=== PATIENT | female | born 1930 | race Caucasian/White ===

== ENCOUNTER 2017-12-16 05:16 | Observation (INO) | payer OTHER, MEDICARE ==
[2017-12-16] MEDS ORDERED: NITROGLYCERIN 0.4 MG/TAB SL ONE (05:46)
[2017-12-16] MEDS ORDERED: ASPIRIN 81 MG CHEWABLE TABLET ONE (05:46)
[2017-12-16 06:11] LABS: Bicarbonate 27 mEq/L (21-31); Glucose Level 90 mg/dL (65-120); Potassium 3.8 mEq/L (3.6-5.0); Sodium Level 140 mEq/L (135-145)
[2017-12-16 06:17] LABS: ALT/SGPT 14 IU/L (10-60); AST/SGOT 21 IU/L (10-42); Albumin 3.9 g/dL (3.2-5.5); Alkaline Phosphatase 61 IU/L (42-121); BUN Blood Urea Nitrogen 13 mg/dL (6-20); Bilirubin Direct 0.2 mg/dL (0-0.2); Bilirubin Total 0.9 mg/dL (0.3-1.2); Creatine Phosphokinase 24 IU/L (22-269); Magnesium 1.7 mg/dL (1.8-2.5); Protein, Total 7.5 g/dL (6.0-8.3)
[2017-12-16 06:20] LABS: CKMB Creatine Kinase MB 2.5 ng/ml (0.3-4.0)
[2017-12-16 06:21] LABS: Absolute Lymphocytes (CBC) 2.5 K/uL (0.7-4.9); Absolute Monocytes 1.2 K/uL (0.1-1.3); Absolute Neutrophil 6.5 K/uL (1.8-8.0); Basophils % 0.8 % (0-1.3); Eosinophils % 1.8 % (0-4.4); Hematocrit 41.5 % (36.0-45.0); Lymphocytes % 23.8 % (15.3-44.8); MCH 27.3 pg (27.0-35.0); MCV 84.5 fL (80-100); MPV 8.7 fL (7.6-11.3); Monocytes % 11.6 % (3.3-12.3); RBC Red Blood Cell Count 4.91 M/uL (3.86-4.86)
[2017-12-16] MEDS ORDERED: MAGNESIUM SULFATE 1 gm IVPB 1 GM/100 ML BAG IV ONE (06:30)
[2017-12-16 06:33] LABS: Protime INR 0.99
--- NOTE | 2017-12-16 06:46 | ER ---
Nurse's Notes [facility] Name: Nena Burton Age: 87 yrs Sex: Female : 1930 Arrival Date: 12/16/2017 Time: 05:17 Bed 7 Private MD: Diagnosis: Chest pain Presentation: 12/16 05:28 Presenting complaint: Patient states: LEFT CHEST PAIN RADIATING TO LEFT ARM. Transition bp of care: patient was not received from another setting of care. No acute neurological deficit is noted. Onset of symptoms was December 16, 2017 at 01:30. Risk Assessment: Do you want to hurt yourself or someone else? Patient reports no desire to harm self or others. Initial Sepsis Screen: Does the patient meet any 2 criteria? No. Patient's initial sepsis screen is negative. Does the patient have a suspected source of infection? No. Patient's initial sepsis screen is negative. Care prior to arrival: None. 05:28 Method Of Arrival: Wheelchair bp 05:28 Acuity: NITHIN 2 bp Triage Assessment: 05:29 The onset of the patients symptoms was December 16, 2017 at 01:30. General: Appears in no bp apparent distress. comfortable, obese, Behavior is cooperative, appropriate for age, anxious. Pain: Complains of pain in left clavicle and anterior aspect of left upper chest Pain radiates to left arm. EENT: No signs and/or symptoms were reported regarding the EENT system. Neuro: Reports numbness in left clavicle and anterior aspect of left upper chest. Cardiovascular: Rhythm is sinus rhythm. Respiratory: Airway is patent Respiratory effort is even, unlabored, Respiratory pattern is regular, symmetrical. GI: No signs and/or symptoms were reported involving the gastrointestinal system. : No signs and/or symptoms were reported regarding the genitourinary system. Derm: No deficits noted. Musculoskeletal: Circulation, motion, and sensation intact. Range of motion: intact in all extremities. Historical: - Allergies: 05:38 Sulfa (Sulfonamide Antibiotics); bp 05:38 PENICILLINS; bp - Home Meds: 05:38 escitalopram oxalate 10 mg oral tab 1 tab once daily [Active]; levothyroxine 100 mcg bp tab 1 tab once daily [Active]; ramipril 5 mg Oral cap 1 cap once daily [Active]; gabapentin 300 mg oral cap 1 cap 3 times per day [Active]; venlafaxine 75 mg oral cp24 1 cap once daily [Active]; pravastatin 40 mg oral tab 1 tab once daily [Active]; prednisone 5 mg Oral tab once daily [Active]; tramadol 50 mg Oral tab 1 tab daily [Active]; - PMHx: 05:38 High Cholesterol; Depression; NEUROPATHY; Hypertension; Hypothyroidism; bp - Immunization history:: Adult Immunizations up to date. - Social history:: Smoking status: Patient/guardian denies using tobacco. - Ebola Screening: : Patient negative for fever greater than or equal to 101.5 degrees Fahrenheit, and additional compatible Ebola Virus Disease symptoms Patient denies exposure to infectious person Patient denies travel to an Ebola-affected area in the 21 days before illness onset No symptoms or risks identified at this time. Screenin:40 Abuse screen: Denies threats or abuse. Denies injuries from another. Nutritional bp screening: No deficits noted. Tuberculosis screening: No symptoms or risk factors identified. Fall Risk No fall in past 12 months (0 pts). No secondary diagnosis (0 pts). No IV (0 pts). Ambulatory Aid- Crutches/Cane/Walker (15 pts). Gait- Weak (10 pts.). Mental Status- Oriented to own ability (0 pts). Total Baltazar Fall Scale indicates Low Risk Score (25-44 pts). Fall prevention measures have been instituted. Side Rails Up X 2 Placed close to Nursing Station Frequent Obs/Assesments occuring Family Present and informed to notify staff if they need to leave bedside As available Patient and Family Educated on Fall Prevention Program and strategies. Assessment: 05:39 General: SEE TRIAGE NOTE. 87YO WF P/W LEFT CP RADIATING TO LEFT ARM SINCE 0130. bp 06:46 Reassessment: ADMIT IN PROCESS FOR HTN AND CP. bp Vital Signs: 05:32 BP 217 / 107; Pulse 66; Resp 16; Temp 98.1; Pulse Ox 98% ; Weight 105.69 kg; Height 5 bp ft. 6 in. (167.64 cm); 06:07 BP 178 / 53; Pulse 64; Resp 18; Pulse Ox 98% ; bp 06:48 BP 158 / 62; Pulse 60; Resp 18; Pulse Ox 100% ; bp 07:46 BP 136 / 69; Pulse 72; Resp 18; Temp 98.1(TE); Pulse Ox 98% on R/A; hj 05:32 Body Mass Index 37.61 (105.69 kg, 167.64 cm) bp ED Course: 05:17 Patient arrived in ED. am2 05:27 Clarence Devries, RN is Primary Nurse. bp 05:29 Triage completed. bp 05:32 Arm band placed on. bp 05:35 Nam Preston MD is Attending Physician. pkl 05:40 Patient has correct armband on for positive identification. Placed in gown. Bed in low bp position. Call light in reach. Side rails up X2. Adult w/ patient. 05:46 Inserted saline lock: 20 gauge in left forearm, using aseptic technique. Blood bp collected. 06:27 CT Head Brain wo Cont In Process Unspecified. EDMS 06:45 César Robins MD is Hospitalizing Provider. pkl 06:53 XRAY Chest (1 view) In Process Unspecified. EDMS 07:43 No provider procedures requiring assistance completed. Patient admitted, IV remains in hj place. intact. Administered Medications: 05:48 Drug: Nitroglycerin 0.4 mg Route: Sublingual; bp 06:13 Follow up: Response: Blood pressure is lowered bp 05:49 Drug: Aspirin 162 mg Route: PO; bp 06:13 Follow up: Response: No adverse reaction bp 06:38 Drug: Magnesium Sulfate 1 grams Route: IVPB; Infused Over: 1 hrs; Site: left forearm; mg2 Outcome: 06:46 Decision to Hospitalize by Provider. pkl 07:44 Admitted to Tele accompanied by tech, family with patient, via stretcher, room 405, with chart, Report called to MACY Bashir 07:44 Condition: stable 07:44 Instructed on the need for admit, Demonstrated understanding of instructions. 07:51 Patient left the ED. Signatures: Dispatcher [employer] EDMS Nam Preston MD MD pkl Oneil Man RN RN hj Char Uriostegui am2 Clarence Devries, RN RN bp Francesco Pena RN RN mg2 Corrections: (The following items were deleted from the chart) 05:39 05:31 90.72 kg; bp bp 05:39 05:32 BP 217 / 107; Pulse 66bpm; Resp 16bpm; bp bp
--- NOTE | 2017-12-16 06:46 | EDPHYS ---
Physician Documentation [facility] Name: Nena Burton Age: 87 yrs Sex: Female : 1930 Arrival Date: 12/16/2017 Time: 05:17 Bed 7 Private MD: ED Physician Nam Preston HPI: 12/16 05:38 This 87 yrs old Female presents to ER via Wheelchair with complaints of S/S pkl of Possible Stroke. 05:38 The patient or guardian reports chest pain that is located primarily in the substernal pkl area. Onset: just prior to arrival, 4 hour(s) ago. The pain radiates to the left arm. The chest pain is described as aching. Historical: - Allergies: 05:38 Sulfa (Sulfonamide Antibiotics); bp 05:38 PENICILLINS; bp - Home Meds: 05:38 escitalopram oxalate 10 mg oral tab 1 tab once daily [Active]; levothyroxine 100 mcg bp tab 1 tab once daily [Active]; ramipril 5 mg Oral cap 1 cap once daily [Active]; gabapentin 300 mg oral cap 1 cap 3 times per day [Active]; venlafaxine 75 mg oral cp24 1 cap once daily [Active]; pravastatin 40 mg oral tab 1 tab once daily [Active]; prednisone 5 mg Oral tab once daily [Active]; tramadol 50 mg Oral tab 1 tab daily [Active]; - PMHx: 05:38 High Cholesterol; Depression; NEUROPATHY; Hypertension; Hypothyroidism; bp - Immunization history:: Adult Immunizations up to date. - Social history:: Smoking status: Patient/guardian denies using tobacco. - Ebola Screening: : Patient negative for fever greater than or equal to 101.5 degrees Fahrenheit, and additional compatible Ebola Virus Disease symptoms Patient denies exposure to infectious person Patient denies travel to an Ebola-affected area in the 21 days before illness onset No symptoms or risks identified at this time. ROS: 05:38 Eyes: Negative for injury, pain, redness, and discharge, ENT: Negative for injury, pkl pain, and discharge, Neck: Negative for injury, pain, and swelling. 05:38 Cardiovascular: Positive for chest pain. 05:38 Respiratory: Negative for cough, shortness of breath. 05:38 Abdomen/GI: Negative for abdominal pain, nausea, vomiting, and diarrhea. 05:38 Back: Negative for acute changes. 05:38 : Negative for urinary symptoms. 05:38 MS/extremity: Negative for acute changes. 05:38 Skin: Negative for rash. 05:38 Neuro: Negative for altered mental status, numbness, speech changes, weakness. Exam: 05:38 Head/Face: Normocephalic, atraumatic. Eyes: Pupils equal round and reactive to light, pkl extra-ocular motions intact. Lids and lashes normal. Conjunctiva and sclera are non-icteric and not injected. Cornea within normal limits. Periorbital areas with no swelling, redness, or edema. ENT: Nares patent. No nasal discharge, no septal abnormalities noted. Tympanic membranes are normal and external auditory canals are clear. Oropharynx with no redness, swelling, or masses, exudates, or evidence of obstruction, uvula midline. Mucous membranes moist. Neck: Trachea midline, no thyromegaly or masses palpated, and no cervical lymphadenopathy. Supple, full range of motion without nuchal rigidity, or vertebral point tenderness. No Meningismus. Chest/axilla: Normal chest wall appearance and motion. Nontender with no deformity. No lesions are appreciated. 05:38 Cardiovascular: Rate: normal, Rhythm: irregularly irregular. 05:38 ECG was reviewed by the Attending Physician. 05:38 Respiratory: the patient does not display signs of respiratory distress, Respirations: normal, Breath sounds: are clear throughout. 05:38 Abdomen/GI: Bowel sounds: normal, Palpation: abdomen is soft and non-tender, in all quadrants. 05:38 Back: Exam negative for acute changes. 05:38 : Exam negative for acute changes. 05:38 Musculoskeletal/extremity: Exam is negative for acute changes. 05:38 Skin: Exam negative for rash. 05:38 Neuro: Orientation: appropriate for stated age, Mentation: appropriate for stated age, Cranial nerves: grossly normal, Cerebellar function: normal finger to nose testing, Motor: moves all fours. Vital Signs: 05:32 BP 217 / 107; Pulse 66; Resp 16; Temp 98.1; Pulse Ox 98% ; Weight 105.69 kg; Height 5 bp ft. 6 in. (167.64 cm); 06:07 BP 178 / 53; Pulse 64; Resp 18; Pulse Ox 98% ; bp 06:48 BP 158 / 62; Pulse 60; Resp 18; Pulse Ox 100% ; bp 07:46 BP 136 / 69; Pulse 72; Resp 18; Temp 98.1(TE); Pulse Ox 98% on R/A; hj 05:32 Body Mass Index 37.61 (105.69 kg, 167.64 cm) bp MDM: 05:35 Patient medically screened. pkl 05:38 Data reviewed: vital signs, nurses notes. pkl 05:55 ED course: Patient said she is also having headache and sinus congestion and drainage. pkl 06:29 Data reviewed: lab test result(s), EKG, radiologic studies, CT scan, plain films. pkl 12/16 05:36 Order name: Basic Metabolic Panel; Complete Time: 06:21 pkl 12/16 05:36 Order name: BNP pkl 12/16 05:36 Order name: CBC with Diff pkl 12/16 05:36 Order name: Ckmb; Complete Time: 06:21 pkl 12/16 05:36 Order name: CPK; Complete Time: 06:21 pkl 12/16 05:36 Order name: LFT's; Complete Time: 06:21 pkl 12/16 05:36 Order name: Magnesium; Complete Time: 06:21 pkl 12/16 05:36 Order name: PT-INR; Complete Time: 06:46 pkl 12/16 05:36 Order name: Ptt, Activated; Complete Time: 06:46 pkl 12/16 05:36 Order name: Troponin (emerg Dept Use Only); Complete Time: 06:21 pkl 12/16 06:50 Order name: Basic Metabolic Panel EDMS 12/16 06:50 Order name: Basic Metabolic Panel EDMS 12/16 06:50 Order name: CBC with Automated Diff EDMS 12/16 06:50 Order name: CBC with Automated Diff EDMS 12/16 05:36 Order name: XRAY Chest (1 view) pkl 12/16 05:36 Order name: EKG; Complete Time: 05:37 pkl 12/16 05:36 Order name: Cardiac monitoring; Complete Time: 05:41 pkl 12/16 05:58 Order name: CT Head Brain wo Cont pkl 12/16 06:50 Order name: Regular EDMS 12/16 06:50 Order name: EKG Electrocardiogram EDMS 12/16 06:50 Order name: EKG Electrocardiogram EDTN 12/16 06:50 Order name: EKG Electrocardiogram EDTN 12/16 06:50 Order name: EKG Electrocardiogram EDTN 12/16 06:50 Order name: Troponin I EDTN 12/16 06:50 Order name: Troponin I EDTN 12/16 06:50 Order name: Troponin I [facility] 12/16 07:17 Order name: Manual Differential EDTN 12/16 05:36 Order name: EKG - Nurse/Tech; Complete Time: 05:41 pkl 12/16 05:36 Order name: IV Saline Lock; Complete Time: 05:45 pkl 12/16 05:36 Order name: Labs collected and sent; Complete Time: 05:45 pkl 12/16 05:36 Order name: O2 Per Protocol; Complete Time: 05:41 pkl 12/16 05:36 Order name: O2 Sat Monitoring; Complete Time: 05:41 pkl Administered Medications: 05:48 Drug: Nitroglycerin 0.4 mg Route: Sublingual; bp 06:13 Follow up: Response: Blood pressure is lowered bp 05:49 Drug: Aspirin 162 mg Route: PO; bp 06:13 Follow up: Response: No adverse reaction bp 06:38 Drug: Magnesium Sulfate 1 grams Route: IVPB; Infused Over: 1 hrs; Site: left forearm; mg2 Disposition: 12/16/17 06:46 Hospitalization ordered by César Robins for Observation. Preliminary diagnosis is Chest pain. - Bed requested for Telemetry/MedSurg (observation). - Status is Observation. hj - Condition is Stable. - Problem is new. - Symptoms have improved. UTI on Admission? No Signatures: Dispatcher [facility] Jackie Braga RN RN Nam Preston MD MD pkl Oneil Man RN RN hj Peltier, Brian, RN RN bp Botello, Elizabeth eb Gardose, Michele, RN RN mg2 Corrections: (The following items were deleted from the chart) 06:49 06:46 Hospitalization Ordered by César Robins MD for Observation. Preliminary diagnosis eb is Chest pain. Bed requested for Telemetry/MedSurg (observation). Status is Observation. Condition is Stable. Problem is new. Symptoms have improved. UTI on Admission? No. pkl 06:55 06:49 12/16/2017 06:46 Hospitalization Ordered by César Robins MD for Observation. mw Preliminary diagnosis is Chest pain. Bed requested for Telemetry/MedSurg (observation). Status is Observation. Condition is Stable. Problem is new. Symptoms have improved. UTI on Admission? No. eb 07:51 06:55 12/16/2017 06:46 Hospitalization Ordered by César Robins MD for Observation. hj Preliminary diagnosis is Chest pain. Bed requested for Telemetry/MedSurg (observation). Status is Observation. Condition is Stable. Problem is new. Symptoms have improved. UTI on Admission? No. mw
[2017-12-16 07:17] LABS: Anisocytosis 3+; Blood Morphology Comment NOTED (NOT SEEN); Macrocytosis 1+; Platelet Estimate ADEQ
--- NOTE | 2017-12-16 08:10 | RAD REPORT ---
EXAM DESCRIPTION: CT - Head Brain Wo Cont - 12/16/2017 6:27 am CLINICAL HISTORY: Headache COMPARISON: None. TECHNIQUE: All CT scans are performed using dose optimization technique as appropriate and may inclu de automated exposure control or mA/KV adjustment according to patient size. FINDINGS: No intracranial hemorrhage, hydrocephalus or extra-axial fluid collection.Mild generalized brain atrophy is present with mild periventricular and deep white matter chronic microvascular ische zaira changes.No areas of brain edema or evidence of midline shift. The paranasal sinuses and mastoids are clear. The calvarium is intact. IMPRESSION: No acute intracranial abnormality.
--- NOTE | 2017-12-16 08:24 | RAD REPORT ---
EXAM DESCRIPTION: RAD - Chest Single View - 12/16/2017 6:52 am CLINICAL HISTORY: Chest pain. COMPARISON: 09/29/2017, 01/11/2016 FINDINGS: Portable technique limits examination quality. Mild interstitial prominence is noted likely indicating mild interstitial pulmonary edema. The heart is moderately enlarged in size. No displaced fractures. IMPRESSION: Mild CHF/ volume overload pattern.
[2017-12-16] MEDS: ASPIRIN EC 81 MG TAB PO SCH (09:00)
--- NOTE | 2017-12-16 09:11 | EKG ---
Test Date: 2017-12-16 Test Time: 05:27:37 Route Aide: ABE MEASUREMENT RESULTS: Intervals: Rate: 65 MD: QRSD: 80 QT: 390 QTc: 405 Hamel: P: MD: QRS: 9 T: 123 INTERPRETIVE STATEMENTS: Atrial fibrillation with premature ventricular or aberrantly conducted complexes Minimal voltage criteria for LVH, may be normal variant Nonspecific ST and T wave abnormality Abnormal ECG No previous ECG available for comparison Electronically Signed On 12-16-17 09:10:49 CDT by Corbin Marx
[2017-12-16] MEDS: ACETAMINOPHEN 500 MG TAB PO PRN ×2 (11:26→17:01)
[2017-12-16 13:09] VITALS: BMI 37.5
[2017-12-16 13:43] LABS: Urine Appearance CLOUDY; Urine Bilirubin NEGATIVE (NEG); Urine Blood 1+ (NEG); Urine Color YELLOW; Urine Glucose NEGATIVE (NEG); Urine Protein TRACE (NEG); Urine Specific Gravity 1.015 (1.005-1.030)
--- NOTE | 2017-12-16 13:48 | RAD REPORT ---
EXAM DESCRIPTION: CT - Chest For Pe Angio - 12/16/2017 1:15 pm CLINICAL HISTORY: Chest pain, shortness of breath, hypoxia COMPARISON: Portable chest December 16 TECHNIQUE: Dynamically enhanced 3 mm thick images of the chest were obtained during administration o f approximately 150mL Isovue 370 IV contrast. Coronal and oblique reconstruction images were generate d and reviewed. Exam utilizes a protocol to evaluate the pulmonary arterial tree. All CT scans are performed using dose optimization technique as appropriate and may include automated exposure control or mA/KV adjustment according to patient size. FINDINGS: No pulmonary emboli are identified. The aorta as imaged shows no acute or suspicious finding. No pericardial thickening or effusion. Card iac silhouette is enlarged predominantly left atrial enlargement. No focal consolidation or mass. Interstitial markings are prominent. Early interstitial edema or infi ltrate could be masked by the chronic interstitial pattern. No pleural effusion or pleural thickening . No mediastinal or hilar suspicious masses. No chest wall masses or abnormal axillary lymphadenopathy. IMPRESSION: No pulmonary emboli identified. Cardiomegaly and mild prominence of the interstitial markings. Early failure or volume overload suspe cted.
[2017-12-16 14:18] LABS: Calcium Oxalate Crystals- Ur FEW (NONE SEEN); Urine Amorphous Sediment 2+ /HPF (NONE SEEN); Urine Bacteria <20 /HPF (<20); Urine Culture Reflex Order REFLEXED; Urine Yeast FEW (NONE SEEN)
[2017-12-16] MEDS: LOSARTAN/HCTZ 50-12.5 PO SCH (14:26)
[2017-12-16] MEDS ORDERED: RIVAROXABAN 20 MG TABLET PO SCH (17:00)
[2017-12-16] MEDS ORDERED: RIVAROXABAN 10 MG TABLET PO SCH (17:00)
--- NOTE | 2017-12-16 19:15 | CON ---
Chief Complaint: Shoulder Pain. History Of Present Illness: Ms. Burton got up in the middle of the night. She does not think she f ell, but she noticed her left shoulder hurts. It hurts when she raises her shoulder, hurts when she touches it. Her chest has not hurt. She was placed in the hospital and [place] was ruled out by EKGs and enzymes. She is a chronic AFib. She had a stroke 20 years ago, was on Coumadin. Her present medic al record says, she takes 10 mg of Xarelto, but that would be an unfortunate under dosing for someone in chronic AFib, who has had a stroke. Her creatinine is normal. GFR is normal. Her dose is 20 mg . I feel for sure that is actually what she takes and are record is actually mistaken and saying she takes 10. So, we will give her 10 mg. The pain is not central chest. There is no dyspnea or sweati ng. There is point tenderness when you touch the shoulder. There is tenderness when she tries to ra ise it. I think she has a small rotator cuff tear, may have happened while she was sleeping. It is something that can happen when we sleep on arms awkwardly, especially in an 87-year-old. The patient has never had vascular disease. Her stroke was caused by AFib. Social History: She uses no tobacco. No illegal drugs. Physical Examination: General: She is 5 feet 6 inches, 233 pounds, extremely hard of hearing. HEENT: Unremarkable. Lungs: Clear. Heart: Irregularly irregular, rate 78, blood pressure 150/86, O2 sat 95%. Extremities: palpable distal pulses. Trace edema. Diagnostic Data: Electrocardiogram reveals atrial fibrillation, occasional PVCs. Ventricular rate 6 5, LVH with a nonspecific repolarization abnormality. I really do not think, we need to do an ischemia workup on Ms. Burton. I think she should be chroni giovanni anticoagulated and I do not see any reason that we need to keep her overnight to do any testing . If there are any doubts about whether this could be an ischemia, we could schedule an outpatient s tress test. I just do not think that is necessary and I think she could be discharged at any point. LEONILA/BIJAL Voice ID: [id number] Report ID: [id number]
[2017-12-16] MEDS ORDERED: TRAMADOL HCL 50 MG TAB PO PRN (20:58)
[2017-12-16] MEDS ORDERED: ATORVASTATIN 10 MG TAB PO SCH (21:00)
--- NOTE | 2017-12-16 21:19 | P.HP ---
Certification for Inpatient Patient admitted to: Observation With expected LOS: <2 Midnights Practitioner: I am a practitioner with admitting privileges, knowledge of patient current condition, hospital course, and medical plan of care. Services: Services provided to patient in accordance with Admission requirements found in Title 42 Section 412.3 of the Code of Federal Regulations Patient History Date of Service: 12/16/17 Reason for admission: CHEST PAIN, JAW PAIN, SHOULDER PAIN. History of Present Illness: MRS. GARCIA IS VERY ANXIOUS LADY WHO IS NOT HANDLING HER LOSS OF FACILITIES WELL. SHE IS ALMOST TOTALLY DEAF, WORRIES ABOUT EVERYTHING. COMES WITH UNCLEAR STORY OF CHEST PAIN, JAW PAIN LAST NIGHT AND CALLS THE SON AT 3 AM. SHE HAS SHOLDER PAIN WITH SEVERE ARTHRITIS FOR A LONG TIME. SHE HAS A FIB ON [facility] XARELTO BUT HAD TO BE STOPPED HER HG DROPPED TO 8 GM ABOUT TWO MONTHS AGO. WE JUST DECIDED TO RESUME IT TWO DAYS AGO. SHE SHOULD BE ON 20 MG A DAY BUT WITH UNDIAGNOSIED BLEEDING OR BLOOD LOSS SHE IS KEPT ON LOWER DOSE. SHE IS NOT IN A GREAT SHAPE TO GO FOR COLONOSCOPY. Allergies cefamandole nafate [From Mandol] Allergy (Verified 03/31/14 18:05) Itching Penicillins Allergy (Verified 03/31/14 18:05) Anaphylaxis Sulfa (Sulfonamide Antibiotics) Allergy (Verified 03/31/14 18:05) Itching maldol Allergy (Uncoded 06/06/15 18:06) Unknown SULFUR, ELEMENTAL Allergy (Uncoded 06/06/15 18:06) Unknown Home Medications: Antiox#10/Om3/Dha/Epa/Lut/Zeax [I-Caps with Lutein-Mckinney 3 Sfg] 1 each PO DAILY 03/31/14 Cholecalciferol (Vitamin D3) [Vitamin D3] 2,000 unit PO DAILY 03/31/14 Escitalopram [Lexapro] 10 mg PO DAILY 03/31/14 Gabapentin 300 mg PO TID 03/31/14 Glucosamine HCl/Chondr Palencia A Na [Osteo Bi-Flex Caplet] 1 each PO BID 03/31/14 Levothyroxine [Synthroid*] 100 mcg PO DAILY 03/31/14 Pravastatin Sodium [Pravachol] 40 mg PO DAILY 03/31/14 Ramipril [Altace] 5 mg PO DAILY 09/26/14 Rivaroxaban [Xarelto*] 10 mg PO DAILY 03/31/14 Ferrous Fumarate/Folic Acid [Hematinic-Folic Acid Tablet] 1 tab PO DAILY predniSONE [Prednisone*] 5 mg PO DAILY 12/16/17 traMADol HCL [Ultram*] 50 mg PO BIDP PRN 12/16/17 - Past Medical/Surgical History Has patient received pneumonia vaccine in the past: Yes Diabetic: No -: Lymphedema -: Hypothyroidism -: Irregular Heart Rate -: Neuropathy -: Hyperlipidemia -: Hypertension -: Depression -: Right wrist fracture (cast) -: Right knee replacement 2011 -: Appendectomy -: Hysterectomy - Social History Smoking Status: Never smoker Alcohol use: No CD- Drugs: No Place of Residence: Home Review of Systems 10-point ROS is otherwise unremarkable General: Sweats (NIGHT) Cardiovascular: Chest Pain Physical Examination - Vital Signs Temperature: 97.3 F Blood Pressure: 155/80 Pulse: 55 Respirations: 18 Pulse Ox (%): 98 - Physical Exam General: Alert, Acute distress, Obese HEENT: Atraumatic, PERRLA, Mucous membr. moist/pink, EOMI, Sclerae nonicteric Neck: Supple, 2+ carotid pulse no bruit, No LAD, Without JVD or thyroid abnormality Respiratory: Clear to auscultation bilaterally, Normal air movement Cardiovascular: Regular rate/rhythm, Normal S1 S2 Gastrointestinal: Normal bowel sounds, No tenderness Musculoskeletal: No tenderness Integumentary: No rashes Neurological: Normal gait, Normal speech, Normal strength at 5/5 x4 extr, Normal tone, Normal affect, Other (ANXIETY) Lymphatics: No axilla or inguinal lymphadenopathy - Studies Laboratory Data (last 24 hrs) 12/16/17 05:45: PT 11.7, INR 0.99, APTT 26.2 12/16/17 05:45: WBC 10.5, Hgb 13.4, Hct 41.5, Plt Count 232 12/16/17 05:45: B-Natriuretic Peptide 284 H 12/16/17 05:45: Sodium 140, Potassium 3.8, BUN 13, Creatinine 0.62, Glucose 90, Magnesium 1.7 L, Total Bilirubin 0.9, AST 21, ALT 14, Alkaline Phosphatase 61 Assessment and Plan - Problems (Diagnosis) (1) Chest pain, atypical Current Visit: Yes Status: Acute Plan: SEEMS NON CARDIAC IT IS ATYPICAL. SHE HAS ARTHRITIS THAT IS SEVERE. SHE HAS HAD TA IN PAST THAT CAN GIVE RISE TO JAW PAIN. WILL CONTINUE XARELTO. GIVE NTG FOR SL USE. I WILL RAISE HER LEXAPRO SO SHE CAN BE CALMER. SHE MAY HAVE CAD BUT AGAIN WITH DECONDITIONED BODY SHE DOES NOT NEED ANY INVASIVE WORK UP. (2) A-fib Current Visit: Yes Status: Acute Plan: WILL WATCH , HG EVERY MONTH . SHE KNOWS WITH ANY DROP IN HG WE WILL HAVE TO STOP XARELTO. - Advance Directives Does patient have a Living Will: No Does patient have a Durable POA for Healthcare: No
[2017-12-17 04:23] LABS: Absolute Lymphocytes (CBC) 2.7 K/uL (0.7-4.9); Absolute Monocytes 1.2 K/uL (0.1-1.3); Absolute Neutrophil 4.8 K/uL (1.8-8.0); Basophils % 1.4 % (0-1.3); Eosinophils % 2.8 % (0-4.4); Hematocrit 41.9 % (36.0-45.0); Lymphocytes % 29.8 % (15.3-44.8); MCH 27.2 pg (27.0-35.0); MCV 83.6 fL (80-100); MPV 8.6 fL (7.6-11.3); Monocytes % 12.9 % (3.3-12.3); RBC Red Blood Cell Count 5.01 M/uL (3.86-4.86)
[2017-12-17 04:29] LABS: BUN Blood Urea Nitrogen 10 mg/dL (6-20); Bicarbonate 28 mEq/L (21-31); Glucose Level 100 mg/dL (65-120); Potassium 3.7 mEq/L (3.6-5.0); Sodium Level 141 mEq/L (135-145)
[2017-12-17] MEDS: ACETAMINOPHEN 500 MG TAB PO PRN (05:36)
[2017-12-17] MEDS ORDERED: LEVOTHYROXINE SOD 0.1 MG TAB PO SCH (06:30)
[2017-12-17 08:17] VITALS: BP 190/79; TEMP 97
[2017-12-17] MEDS: ASPIRIN EC 81 MG TAB PO SCH (08:24)
[2017-12-17] MEDS: LOSARTAN/HCTZ 50-12.5 PO SCH (08:24)
--- NOTE | 2017-12-17 08:24 | EKG ---
Test Date: 2017-12-17 Test Time: 07:31:51 [employer]or: TORRI MEASUREMENT RESULTS: Intervals: Rate: 49 NM: QRSD: 78 QT: 450 QTc: 406 [place]: P: NM: QRS: -8 T: 118 INTERPRETIVE STATEMENTS: Atrial fibrillation with slow ventricular response Voltage criteria for left ventricular hypertrophy T wave abnormality, consider lateral ischemia or digitalis effect Abnormal ECG Compared to ECG 12/16/2017 05:27:37 T-wave abnormality now present Possible ischemia now present Ventricular premature complex(es) no longer present ST (T wave) deviation no longer present Electronically Signed On 12-17-17 08:23:32 CDT by Darinel Samuel
[2017-12-17] MEDS ORDERED: predniSONE 5 MG TAB PO SCH (09:00)
[2017-12-17] MEDS ORDERED: ESCITALOPRAM 20 MG TAB PO SCH ×2 (09:00)
[2017-12-17 09:19] VITALS: O2SAT 97
--- NOTE | 2017-12-17 13:06 | P.DS ---
Admission Date: 12/16/17 Discharge Date: 12/17/17 Disposition: DC HOME/HOME HEALTH CARE Discharge Condition: FAIR Reason for Admission: CHEST PAIN, JAW PAIN, SHOULDER PAIN. 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 SHE IS ALMOST TOTALLY DEAF, WORRIES ABOUT EVERYTHING. COMES WITH UNCLEAR STORY OF CHEST PAIN, JAW PAIN LAST NIGHT AND CALLS THE SON AT 3 AM. SHE HAS SHOLDER PAIN WITH SEVERE ARTHRITIS FOR A LONG TIME. SHE HAS A FIB ON ALF XARELTO BUT HAD TO BE STOPPED HER HG DROPPED TO 8 GM ABOUT TWO MONTHS AGO. WE JUST DECIDED TO RESUME IT TWO DAYS AGO. SHE SHOULD BE ON 20 MG A DAY BUT WITH UNDIAGNOSIED BLEEDING OR BLOOD LOSS SHE IS KEPT ON LOWER DOSE. SHE IS NOT IN A GREAT SHAPE TO GO FOR COLONOSCOPY. MS GARCIA IS STABLE. SHE HAD HEADACHES. BP IS HIGH. SHE STAYS VERY ANXEIOUS. I RAISED LEXAPRO, RAISED HE R BP MEDS. SHE WILL FU IN OFFICE IN 10 DAYS. STABLE FOR NOW. Vital Signs/Physical Exam: Temp Pulse Resp BP Pulse Ox 97.0 F 62 20 190/79 H 96 12/17/17 08:00 12/17/17 08:24 12/17/17 08:00 12/17/17 08:24 12/17/17 08:00 Laboratory Data at Discharge: WBC 9.0 K/uL (4.3-10.9) D 12/17/17 03:56 Hgb 13.6 g/dL (12.0-15.0) 12/17/17 03:56 Hct 41.9 % (36.0-45.0) 12/17/17 03:56 Plt Count 235 K/uL (152-406) 12/17/17 03:56 PT 11.7 SECONDS (9.5-12.5) 12/16/17 05:45 INR 0.99 12/16/17 05:45 APTT 26.2 SECONDS (24.3-36.9) 12/16/17 05:45 Sodium 141 mEq/L (135-145) 12/17/17 03:56 Potassium 3.7 mEq/L (3.6-5.0) 12/17/17 03:56 BUN 10 mg/dL (6-20) 12/17/17 03:56 Creatinine 0.59 mg/dL (0.44-1.00) 12/17/17 03:56 Glucose 100 mg/dL (65-120) 12/17/17 03:56 Magnesium 1.7 mg/dL (1.8-2.5) L 12/16/17 05:45 Total Bilirubin 0.9 mg/dL (0.3-1.2) 12/16/17 05:45 AST 21 IU/L (10-42) 12/16/17 05:45 ALT 14 IU/L (10-60) 12/16/17 05:45 Alkaline Phosphatase 61 IU/L (42-121) 12/16/17 05:45 Troponin I 0.03 ng/mL (<0.03) 12/16/17 14:09 B-Natriuretic Peptide 284 pg/ml (<=100) H 12/16/17 05:45 Home Medications: Antiox#10/Om3/Dha/Epa/Lut/Zeax [I-Caps with Lutein-Center 3 Sfg] 1 each PO DAILY 03/31/14 Cholecalciferol (Vitamin D3) [Vitamin D3] 2,000 unit PO DAILY 03/31/14 Gabapentin 300 mg PO TID 03/31/14 Glucosamine HCl/Chondr [place] A Na [Osteo Bi-Flex Caplet] 1 each PO BID 03/31/14 Levothyroxine [Synthroid*] 100 mcg PO DAILY 03/31/14 Pravastatin Sodium [Pravachol] 40 mg PO DAILY 03/31/14 Rivaroxaban [Xarelto*] 10 mg PO DAILY 03/31/14 Ferrous Fumarate/Folic Acid [Hematinic-Folic Acid Tablet] 1 tab PO DAILY predniSONE [Prednisone*] 5 mg PO DAILY 12/16/17 traMADol HCL [Ultram*] 50 mg PO BIDP PRN 12/16/17 Bisoprolol Fumarate [Zebeta*] 5 mg PO DAILY #90 tablet 12/17/17 Escitalopram [Lexapro*] 20 mg PO DAILY #90 tab 12/17/17 Losartan/Hydrochlorothiazide [Losartan-Hctz 100-12.5 mg Tab] 1 each PO DAILY # 90 tablet 12/17/17 New Medications: Bisoprolol Fumarate [Zebeta*] 5 mg PO DAILY #90 tablet Escitalopram [Lexapro*] 20 mg PO DAILY #90 tab Losartan/Hydrochlorothiazide [Losartan-Hctz 100-12.5 mg Tab] 1 each PO DAILY # 90 tablet
== END 2017-12-17 14:56 | disposition home health service (06) ==
LOC: ER 05:16 → 4TH 06:46
PROVIDERS: ADMIT Internal Medicine; ATTEND Internal Medicine
DX: R07.89 Other chest pain (principal); I48.91 Unspecified atrial fibrillation; M19.90 Unspecified osteoarthritis, unspecified site; Z79.01 Long term (current) use of anticoagulants; F41.9 Anxiety disorder, unspecified; E03.9 Hypothyroidism, unspecified; I10 Essential (primary) hypertension; Z88.0 Allergy status to penicillin; Z88.2 Allergy status to sulfonamides
CPT/HCPCS: 36415; 70450; 71045; 71275; 80048 ×2; 80076; 81001; 82550; 82553; 83735; 83880; 84484 ×3; 85025 ×2; 85610; 85730; 87086; 87088; 93005 ×2; 96374; 99285; G0378 ×2; J3475; Q9967; J7512